=== PATIENT | male | born 1985 | race Caucasian/White ===

== ENCOUNTER 2016-09-18 18:35 | Inpatient (IN) | payer OTHER ==
[~2016-09-18] VITALS: Ht 182.9 cm; Wt 72.6 kg
--- NOTE | ~2016-09-18 | PN ---
Unit #: [id number] #: [id number] Patient: ZAKI RANGEL [id number] [facility] [address] [place] [address] [id number] MR#: [id number] NAME: ZAKI RANGEL ROOM: [facility] Age: 31 Sex: M Admission Date: 09/18/2016 : 1985 Attending Physician: Wilmer Burden M.D. Admitting Physician: Wilmer Burden M.D. Primary Care Physician: Primary Care Physician Juliana VELASCO PROGRESS NOTES DATE September 22, 2016 DISCUSSION Mr. Rangel is a 31-year-old white male, who was seen today and chart was reviewed and the case was discussed with the staff. He has been doing fairly well with no agitation or irritability, and has been calm and cooperative with the treatment recommendations and he has been taking the medications and tolerating them fairly well. MENTAL STATUS EXAMINATION Young white male, who was casually dressed with fair personal hygiene and appears to be in no acute distress or discomfort. He was awake and alert with intact orientation. His mood is anxious with a congruent affect. He denies any suicidal or homicidal ideations. His insight and judgment remain slightly impaired. TREATMENT PLAN 1. We will continue him on his current medications and treatment protocol, and will monitor his response to the medications, and make further adjustments as needed. 2. We will continue to followup. Dictated by... Tito Louie/jie TD: 09/23/2016 12:50 JOB #: [id number] Unit #: [id number] #: [id number] Patient: ZAKI RANGEL PROGRESS NOTES Page 1 of 1 X Wilmer Burden MD PROGRESS NOTE
--- NOTE | ~2016-09-18 | PN ---
Unit #: [id number] #: [id number] Patient: ZAKI RANGEL [id number] [facility] [address] [place] [address] [id number] MR#: [id number] NAME: ZAKI RANGEL ROOM: [facility] Age: 31 Sex: M Admission Date: 09/18/2016 : 1985 Attending Physician: Wilmer Burden M.D. Admitting Physician: Wilmer Burden M.D. Primary Care Physician: Primary Care Physician Juliana VELASCO PROGRESS NOTES DATE 09/21/2016 DISCUSSION Mr. Rangel is a 31-year-old, white male with substance abuse and mood disorder who was seen today and chart was reviewed and case was discussed with the staff. He has been doing fairly well and has been showing improvement in his mood and functioning. He has been calm and cooperative and compliant with treatment recommendations as he has been taking medications and tolerating them fairly well with no reported side effects. MENTAL STATUS EXAM Young white male who was casually dressed with fair personal hygiene, appears to be in no acute distress or discomfort. He was awake and alert with intact orientation. His mood was anxious with congruent affect. He denies any suicidal or homicidal ideation. His insight and judgement remains slightly impaired. TREATMENT PLAN 1. We will continue him on his current medications and treatment protocol. We will monitor his response to the medication and make further adjustments as needed. 2. We will continue to follow up. Dictated by... Tito Louie/brandy TD: 09/23/2016 02:12 JOB #: [id number] Unit #: [id number] #: [id number] Patient: ZAKI RANGEL PROGRESS NOTES Page 1 of 1 X Wilmer Burden MD PROGRESS NOTE
--- NOTE | ~2016-09-18 | DS ---
Unit #: [id number] #: [id number] [facility]: [facility] [id number] [facility] [address] [place] [address] [id number] I MR#: [id number] NAME: ZAKI POLK ROOM: [facility] Age: 31 Sex: M Admission Date: 09/18/2016 : 1985 Discharge Date: 09/23/2016 Attending Physician: Wilmer Burden M.D. Primary Care Physician: Primary Care Physician No DISCHARGE SUMMARY IDENTIFYING DATA Mr. Turner is a 31-year-old single white male a ____ disorder and substance abuse self-referred to the hospital on a voluntary basis. DISCHARGE DIAGNOSES Psychiatric: Opioid dependance, moderate, in acute withdrawals and opioid-induced mood disorder. Medical: None. Stressors: Moderate psychosocial stressors. HISTORY OF PRESENT ILLNESS Please see initial psychiatric evaluation for details. PAST PSYCHIATRIC HISTORY Please see initial psychiatric evaluation for details. PAST MEDICAL HISTORY Please see initial psychiatric evaluation for details. HOSPITAL COURSE The patient was admitted to the adult psychiatric and chemical dependency unit at [facility] and was oriented to the hospital environment. Routine p.r.n. medications were initiated, and he was started back on his home medications and was closely monitor. He was taking the medications regularly and was tolerating them fairly well without any complication and was willing to continue treatment on an outpatient basis and as such, it was decided that he will be discharged home and will continue treatment on an outpatient basis. DISCHARGE MEDICATIONS None. DISCHARGE CONDITION Stable. PROGNOSIS Fair. Dictated by... Wilmer Burden M.D. Unit #: [id number] #: [id number] Patient: ZAKI POLK IAA/modl TD: 10/02/2016 13:52 JOB #: [id number] DISCHARGE SUMMARY Page 1 of 1 X Wilmer Burden MD X DISCHARGE SUMMARY
--- NOTE | ~2016-09-18 | PN ---
Unit #: [id number] #: [id number] Patient: ZAKI RANGEL [id number] [facility] [address] [place] [address] [id number] I MR#: [id number] NAME: ZAKI RANGEL ROOM: [facility] Age: 31 Sex: M Admission Date: 09/18/2016 : 1985 Attending Physician: Wilmer Burden M.D. Admitting Physician: Wilmer Burden M.D. Primary Care Physician: Primary Care Physician Juliana VELASCO PROGRESS NOTES DATE OF SERVICE 09/20/2016 DISCUSSION Mr. Rangel is a 31-year-old white male who was seen today. Chart was reviewed and case was discussed with the staff. He has been anxious, withdrawn, and rather seclusive to himself. Meanwhile, he has been cooperative with the treatment recommendations and has been taking the medications and tolerating them fairly well and reported that he has been trusted in the Vivitrol injection program after finishing detox. MENTAL STATUS EXAMINATION Young white male who is casually dressed with fair personal hygiene, appears to be in no acute distress or discomfort. The patient was awake and alert on interaction with intact orientation. His mood is anxious with congruent affect. His speech is slow and goal-directed. He denies any suicidal or homicidal ideations and also denies any auditory or visual hallucinations. His insight and judgment remain slightly impaired. TREATMENT PLAN 1. We will continue him on his current medications and treatment protocol. We will monitor his response and make further adjustments as needed. 2. We will continue to follow up. Dictated by... Tito Louie/juan manuel TD: 09/20/2016 08:35 JOB #: [id number] Unit #: [id number] #: [id number] Patient: ZAKI RANGEL PROGRESS NOTES Page 1 of 1 X Wilmer Burden MD PROGRESS NOTE
--- NOTE | ~2016-09-18 | PA ---
Unit #: [id number] #: [id number] Patient: ZAKI RANGEL [id number] [facility] [address] [place] [address] [id number] I MR#: [id number] NAME: ZAKI RANGEL ROOM: [facility] Age: 31 Sex: M Admission Date: 09/18/2016 : 1985 Date of Assessment: Attending Physician: Wilmer Burden M.D. Admitting Physician: Wilmer Burden M.D. Primary Care Physician: Primary Care Physician No PSYCHIATRIC ASSESSMENT DATE OF SERVICE 09/19/2016 IDENTIFYING DATA Mr. Rangel is a 31-year-old single white male, who is a resident of [place], [place] and was self-referred to the hospital on a voluntary basis. CHIEF COMPLAINT "Suicidal ideations and substance abuse." HISTORY OF PRESENT ILLNESS Mr. Rangel is a 31-year-old white male, who presented to the hospital reporting suicidal ideation and substance abuse and reports that he has been using heroin for the last 12 years daily in the amount of 2 g and reports that he has had suicidal thoughts recently yesterday because the drugs have taken over his life. He reports that he has a current plan to take his life by shooting himself with a gun. He reports that he wanted to use the gun today that his father has to kill himself. Upon evaluation by me, the patient endorses significant depression, anxiety, irritability, consequences of his addiction and feelings of hopelessness and helplessness, and suicidal ideation and as such, recommendation for inpatient level of care for safety and stabilization was made and the patient was transferred to us. SUBSTANCE ABUSE HISTORY The patient reports history of alcohol, cannabis, opioids, amphetamines and benzodiazepine abuse, and currently IV heroin has been his drug of choice and reports that he has been using 2 g of IV heroin on a daily basis. PAST PSYCHIATRIC HISTORY The patient has had a history of multiple inpatient chemical dependency treatments across different facilities including [facility], [facility], [facility] and [facility], and review of the medical records indicate currently he is not active in any treatment program, he is not seeing a psychiatrist, and he is not taking any psychotropic medications. PAST MEDICAL HISTORY Hepatitis C and hepatitis B. ALLERGIES No known medication allergies. Unit #: [id number] #: [id number] Patient: ZAKI RANGEL CURRENT MEDICATIONS None. PERSONAL AND SOCIAL HISTORY A 31-year-old white male, who reports that he lives at home with his family, and he is single and unemployed and has poor social support system. MENTAL STATUS EXAMINATION Young white male, who was casually dressed with a fair personal hygiene and appears to be in no acute distress or discomfort. He was awake and alert on interaction with intact orientation to time, place, and person. His mood was anxious and depressed with a congruent affect. His speech was slow and restricted in content. He reports having suicidal ideations, but denies any homicidal ideations, and also denies any auditory or visual hallucinations. His insight and judgment remain significantly impaired. DIAGNOSTIC IMPRESSION Psychiatric: Major depressive disorder, recurrent, moderate, without psychotic features. Opioid dependence, moderate, in acute withdrawals. Alcohol abuse, moderate. Cannabis abuse, moderate. Amphetamine abuse, moderate. Benzodiazepine abuse, moderate. Medical: Hepatitis B and hepatitis C. Stressors: Moderate psychosocial stressors. TREATMENT PLAN 1. The patient has presented with a history of mood disorder and substance abuse, and has been decompensating and will need inpatient hospitalization for detoxification and safety and stabilization. We will start him on detox protocol. We will closely monitor for any worsening withdrawal symptoms. 2. Supportive therapy was provided to the patient. 3. Safe, structured, and nourishing environment will be provided. ESTIMATED LENGTH OF STAY 4 to 5 days. ABILITY TO HELP SELF Limited. WILLINGNESS TO HELP SELF The patient appears to be willing to help self. STRENGTHS 1. Communicative. 2. Cooperative. PROBLEMS 1. Chronic dysphoric symptoms. 2. Chronic chemical dependency. 3. Poor social support system. DISCHARGE CRITERIA This will be contingent upon the patient's ability to show resolution of his depression and anxiety, and his ability to stay safe to himself, particularly after discharge from the hospital. Unit #: [id number] #: [id number] Patient: ZAKI RANGEL Dictated by..Tito Price/yadiel TD: 09/19/2016 06:28 JOB #: [id number] PSYCHIATRIC ASSESSMENT Page 1 of 1 X Wilmer Burden MD PSYCHIATRIC ASSESSMENT
--- NOTE | ~2016-09-18 | HP ---
Unit #: [id number] #: [id number] Patient: ZAKI POLK [id number] [place] [address] [id number] I MR#: [id number] NAME: ZAKI POLK ROOM: [facility] Age: 31 Sex: M Admission Date: 09/18/2016 : 1985 Attending Physician: Wilmer Burden M.D. Admitting Physician: Wilmer Burden M.D. Primary Care Physician: Primary Care Physician No HISTORY AND PHYSICAL HISTORY OF PRESENT ILLNESS Zaki is a 31 year old admitted to [facility] because of his continued illicit drug use. He has had other admissions to this facility for the same. PAST MEDICAL HISTORY 1. Long history of illicit substance abuse to include IV drugs. 2. Hepatitis C. PAST SURGICAL HISTORY Nothing reported. ALLERGIES No known drug allergies. SOCIAL HISTORY Smokes 1 pack per day. Drinks alcohol rarely. Admits to history of illicit substance abuse to include IV heroin. FAMILY HISTORY Medically noncontributory. REVIEW OF SYSTEMS CONSTITUTIONAL: No fever or chills. HEENT: Denies any sore throat, ear pain or runny nose. CARDIOVASCULAR: Denies chest pain, irregular heart rhythm or palpitations. CHEST: Denies shortness of breath or cough. No hemoptysis. GASTROINTESTINAL: Denies nausea, vomiting, diarrhea or chronic constipation. ENDOCRINE: Denies history of increased thirst or urination. No recent significant weight loss or gain. GENITOURINARY: Denies dysuria, frequency, or hematuria. SKIN: Denies any rashes. HEMATOLOGIC: Denies history of increased bleeding or bruising. MUSCULOSKELETAL: Denies any hot, swollen joints. No generalized muscle pain. NEUROLOGIC: Denies problems with vision or speech. No frequent, severe headaches. No numbness, tingling or weakness in any extremities. Denies loss of bladder or bowel control. CURRENT MEDICATIONS Detox protocol. Unit #: [id number] #: [id number] Patient: ZAKI POLK PHYSICAL EXAMINATION GENERAL: Alert, well-nourished, in no apparent distress. VITAL SIGNS: Blood pressure 126/82, heart rate 74, respirations 16, temperature 98.6. WEIGHT: 160. HEIGHT: 6 feet 0 inches. SKIN: Warm and dry without rash or lesion. HEENT: Normocephalic. TMs not viewed. Oral and nasal passages clear. Conjunctivae clear. PERRLA. EOMs intact. NECK: Supple without lymphadenopathy or thyromegaly. HEART: Regular rate and rhythm without murmur. LUNGS: Clear. ABDOMEN: Soft, nontender. : Not done. EXTREMITIES: No evidence of cyanosis, clubbing or edema. Moves all without focal deficit. NEUROLOGICAL: Grossly within normal limits. Cranial Nerves: II: Visual cunningham are intact. III, IV AND : Extraocular movements are intact. Pupils are equal, round and reactive to light. V: Facial sensation is grossly normal. VII: Facial movements and expression are normal. VIII: Auditory acuity grossly intact. IX, X: Uvula is midline. Phonation is normal. XI: Patient shrugs shoulders and turns head normally. XII: Tongue protrudes in the midline. Sensory and Motor Function: Sensory and motor sensation is grossly normal. Motor: moves all extremities well. Coordination: Gait is normal. Deep Tendon Reflexes: Intact. IMPRESSION Psychiatric admission. RECOMMENDATIONS PSYCHIATRIC: Per psychiatrist. MEDICAL: See no contraindication to participate in facility's activities. MEDICAL PROGNOSIS Good. MEDICAL CONDITION Stable. Dictated by... Danelle Diaz PAlmitaASang. for Tito Guerrero/karine TD: 09/19/2016 15:57 JOB #: [id number] Unit #: [id number] #: [id number] Patient: ZAKI POLK HISTORY AND PHYSICAL Page 1 of 1 X Danelle Diaz HISTORY AND PHYSICAL
[2016-09-19 09:45] LABS: ALBUMIN SERUM 4.1 g/dL (3.5-5.0); BILIRUBIN,TOTAL 0.8 mg/dL (0.2-2.0); CALCIUM SERUM 9.3 mg/dL (8.4-10.2); GLOM FILT RATE Estimated 101.3 mL/min (>60); POTASSIUM 4.6 mmol/L (3.5-5.1)
[2016-09-19 09:52] LABS: BASOPHIL% 0.6 % (0-2.5); EOSINOPHIL# 0.1 X10e3 (0-0.7); EOSINOPHIL% 2.1 % (0.0-7.0); HEMATOCRIT 39.4 % (38.0-50.0); HEMOGLOBIN 13.3 gm/dL (13.0-16.0); LYMPHOCYTE# 3.9 X10e3 (1.0-3.5); LYMPHOCYTE% 57.7 % (17.0-45.0); MEAN CELL VOLUME 88.9 FL (83-96); MEAN CORPUSCULAR HGB CONC 33.8 g/dL (30-36); MEAN PLATELET VOLUME 8.2 FL (6.5-11.5); MONOCYTE# 0.4 X10e3 (0-1.0); MONOCYTE% 6.1 % (3.0-12.0); NEUTROPHIL# 2.3 X10e3 (1.5-7.1); NEUTROPHIL% 33.5 % (40-75); PLATELET COUNT 262 X10e3 (140-420); RED BLOOD COUNT 4.43 X10e (3.90-5.60); RED CELL DISTRIBUTION WIDTH 14.5 % (11.0-15.5); WHITE BLOOD COUNT 6.8 X10e3 (4.0-10.5)
[2016-09-19 09:54] LABS: DIFF IND YES
[2016-09-19 10:18] LABS: ANISOCYTOSIS SL; PLATELET ESTIMATE NORMAL (NORMAL)
[2016-09-19 12:41] LABS: URINE APPEARANCE CLEAR; URINE BILIRUBIN NEG (NEG); URINE BLOOD NEG (NEG); URINE COLOR YELLOW; URINE GLUCOSE NORM (NORM); URINE KETONE NEG (NEG); URINE LEUKOCYTE ESTERASE NEG (NEG); URINE NITRATE NEG (NEG); URINE PROTEIN NEG (NEG); URINE SPECIFIC GRAVITY 1.015 (1.003-1.035); URINE UROBILINOGEN NORM (NORM)
[2016-09-19 12:55] LABS: AMPHETAMINE NEG (NEG); BARBITURATES NEG (NEG); BENZODIAZEPINES POS (NEG); COCAINE NEG (NEG); MARIJUANA POS (NEG); OPIATES POS (NEG); TRICYCLIC ANTIDEPRESSANTS NEG (NEG); U METHADONE NEG (NEG)
== END 2016-09-23 08:20 | DRG 885 ==
LOC: P1E 20:19
PROVIDERS: Psychiatry & Neurology Psychiatry
PROC: HZ2ZZZZ Detoxification Services for Substance Abuse Treatment (ICD-10-PCS; principal; 2016-09-18)
DX: F33.1 Major depressive disorder, recurrent, moderate (principal); F13.20 Sedative, hypnotic or anxiolytic dependence, uncomplicated; F11.23 Opioid dependence with withdrawal; F15.20 Other stimulant dependence, uncomplicated; F10.20 Alcohol dependence, uncomplicated; F12.20 Cannabis dependence, uncomplicated; Z86.19 Personal history of other infectious and parasitic diseases; F17.200 Nicotine dependence, unspecified, uncomplicated
CPT/HCPCS: 80053; 80307; 81003; 85025; 86592